=== PATIENT | male | born 1960 | race African-American/Black ===

== ENCOUNTER 2018-08-12 01:30 | Inpatient (IN) | payer MEDICAID ==
[~2018-08-12] VITALS: Ht 190.5 cm; Wt 95.3 kg
[2018-08-12] MEDS ORDERED: CLONIDINE 0.2MG TABLET PO ONE (02:00)
[2018-08-12] MEDS ORDERED: ASPIRIN 81MG TABLET PO ONE (02:00)
[2018-08-12 02:30] LABS: BASOPHILS % 0.8 % (0.0-2.0); EOSINOPHILS % 1.6 % (0.0-5.0); HEMATOCRIT. 50.4 % (42.0-52.0); HEMOGLOBIN. 17.2 g/dL (14.0-18.0); LYMPHOCYTES % 50.7 % (20.0-50.0); MEAN CORPUSCULAR HEMOGLOBIN 30.8 pg (28.0-32.0); MEAN CORPUSCULAR VOLUME 90.4 fL (80.0-94.0); MEAN PLATELET VOLUME 8.9 fl (7.4-10.4); MONOCYTES % 8.9 % (2.0-8.0); PLATELET 187 x1000/uL (130-400); RED BLOOD CELL COUNT 5.58 mill/uL (4.7-6.1); RED CELL DISTRIBUTION WIDTH 13.5 % (11.6-14.6)
[2018-08-12 02:32] LABS: CLARITY URINE CLEAR (CLEAR); COLOR URINE YELLOW (YELLOW); KETONES URINE TRACE (NEGATIVE); LEUKOCYTE ESTERASE URINE NEGATIVE (NEGATIVE); NITRITE URINE NEGATIVE (NEGATIVE); OCCULT BLOOD URINE NEGATIVE (NEGATIVE); PROTEIN URINE 1+ (NEGATIVE); SPECIFIC GRAVITY URINE 1.027 (1.005-1.030); UROBILINOGEN URINE 0.2 E.U./dL (0.2-1.0)
[2018-08-12 02:38] LABS: CHLORIDE 106 mEq/L (98-107)
[2018-08-12 02:43] LABS: PARTIAL THROMBOPLASTIN TIME 28.2 sec (23.4-31.0); PROTHROMBIN TIME 10.5 sec (9.1-11.1)
[2018-08-12 06:45] VITALS: BP 130/80
[2018-08-12 07:30] VITALS: BP 179/115
[2018-08-12 08:00] VITALS: BP 179/115
[2018-08-12] MEDS ORDERED: METO25TA6 MT (08:09)
[2018-08-12] MEDS ORDERED: ATOR20TA MT (08:09)
[2018-08-12] MEDS ORDERED: CLON0.2T MT (08:09)
[2018-08-12] MEDS ORDERED: DOCUSATE SODIUM 100MG CAPSULE PO PRN (09:00)
[2018-08-12] MEDS ORDERED: CLONIDINE 0.1MG TABLET PO PRN (09:00)
[2018-08-12] MEDS ORDERED: HYDROCODONE/ACETAMINOPHEN 5/325MG TABLET PO PRN (09:00)
[2018-08-12] MEDS ORDERED: LORAZEPAM 2MG/ML CPJ IV PRN (09:00)
[2018-08-12] MEDS ORDERED: ONDANSETRON HCL 4MG/2ML INJ IV PRN (09:00)
[2018-08-12] MEDS ORDERED: IPRATROPIUM/ALBUTEROL 0.5-3(2.5)MG/3ML NEB INH PRN (09:00)
[2018-08-12] MEDS ORDERED: METOPROLOL TARTRATE 25MG TABLET PO SCH (09:00)
[2018-08-12] MEDS ORDERED: ATORVASTATIN CALCIUM 20MG TABLET PO SCH (09:12)
[2018-08-12 09:48] LABS: T4 FREE 0.84 ng/dL (0.76-1.46)
[2018-08-12 10:30] VITALS: BP 170/106
[2018-08-12 12:00] VITALS: BP 184/106
[2018-08-12] MEDS ORDERED: CLONIDINE 0.2MG TABLET PO SCH (14:00)
== END 2018-08-12 15:57 | disposition left against medical advice (07) | DRG 194 ==
LOC: ER 02:16 → 6WST 03:24 → EDBEDREQTM 03:28 → EDBEDREQ 03:28 → ENRESERV 05:37
PROVIDERS: ADMIT Internal Medicine; ATTEND Internal Medicine
DX: I11.0 Hypertensive heart disease with heart failure (principal); E11.9 Type 2 diabetes mellitus without complications; F41.0 Panic disorder [episodic paroxysmal anxiety]; I50.9 Heart failure, unspecified; R22.9 Localized swelling, mass and lump, unspecified; E78.5 Hyperlipidemia, unspecified; Z82.3 Family history of stroke; Z82.49 Family history of ischemic heart disease and other diseases of the circulatory system; Z91.19 Patient's noncompliance with other medical treatment and regimen; Z79.84 Long term (current) use of oral hypoglycemic drugs
CPT/HCPCS: 36415; 71045; 82962; 83880; 84439; 84443; 84481; 84484; 93005; 99285; J2060